=== PATIENT | female | born 1965 | race American Indian/Alaskan Native ===

== ENCOUNTER 2018-11-11 17:53 | Inpatient (IN) | payer MEDICAID ==
[2018-11-11] MEDS ORDERED: Sodium Chloride 0.9% 1,000 ML IV ONE (19:56)
--- NOTE | 2018-11-11 20:07 | C.PDOC ---
History Of Present Illness Patient is a 53 year old female, with a PMHx of stomach cancer, who presents to the ED for evaluation of vomiting after eating today. Patient states that she has had numerous previous episodes. Patient states that she had some procedure done at another hospital but is unsure of what it was. Patient is a poor historian. She denies any fever, chills, CP, SOB, or other complaints. Time Seen by Provider: 11/11/18 19:46 Chief Complaint (Nursing): Abdominal Pain History Per: Patient History/Exam Limitations: no limitations Onset/Duration Of Symptoms: Hrs Current Symptoms Are (Timing): Still Present Associated Symptoms: Vomiting. denies: Fever Recent travel outside of the [place]: No Additional History Per: Patient Past Medical History Reviewed: Historical Data, Nursing Documentation, Vital Signs Vital Signs: Last Vital Signs Temp 97.5 F L 11/11/18 18:08 Pulse 101 H 11/11/18 18:08 Resp 18 11/11/18 18:08 BP 121/83 11/11/18 18:08 Pulse Ox 97 11/11/18 18:08 - Medical History PMH: Hypercholesterolemia, Obstructive Bowel Surgical History: No Surg Hx Family History: States: No Known Family Hx - Social History Hx Alcohol Use: Yes Hx Substance Use: No - Immunization History Hx Tetanus Toxoid Vaccination: No Hx Influenza Vaccination: No Hx Pneumococcal Vaccination: No Review Of Systems Except As Marked, All Systems Reviewed And Found Negative. Constitutional: Negative for: Fever, Chills Cardiovascular: Negative for: Chest Pain Respiratory: Negative for: Shortness of Breath Gastrointestinal: Positive for: Vomiting Physical Exam - Physical Exam Appears: Non-toxic, No Acute Distress Skin: Normal Color, Warm, Dry Head: Atraumatic, Normacephalic Oral Mucosa: Moist Neck: Normal ROM, Supple Chest: Symmetrical, No Deformity Cardiovascular: Rhythm Regular, No Murmur Respiratory: Normal Breath Sounds, No Rales, No Rhonchi, No Wheezing Gastrointestinal/Abdominal: Soft, Tenderness (epigastric) Neurological/Psych: Oriented x3 ED Course And Treatment - Laboratory Results Result Diagrams: 11/11/18 20:57 11/11/18 20:57 O2 Sat by Pulse Oximetry: 97 (on RA) Pulse Ox Interpretation: Normal Medical Decision Making Medical Decision Making: Plan: CAT Chest Labs Urinalysis HCG Urinalysis IV Fluids Zofran 4mg PO Protonix 40mg IVP Patient reports hx of anemia. Refuses rectal exam. upon ed arrival case discusse nawaf hpmd elamir. states pt has h/ o of esophageal stent with numerous dilatation procedure. requests labs and admission for gi eval. Disposition - Disposition Disposition: HOSPITALIZED Disposition Time: 22:00 Condition: STABLE - Clinical Impression Clinical Impression: Vomiting, Abdominal pain - Scribe Statement The provider has reviewed the documentation as recorded by the Marta Luong All medical record entries made by the Rebecaibmariano were at my direction and personally dictated by me. I have reviewed the chart and agree that the record accurately reflects my personal performance of the history, physical exam, medical decision making, and the department course for this patient. I have also personally directed, reviewed, and agree with the discharge instructions and disposition.
[2018-11-11] MEDS ORDERED: Sodium Chloride 0.9% 1,000 ML ONE (20:56)
[2018-11-11 21:07] LABS: BASO # 0.1 K/uL (0.0-0.2); BASO % 0.6 % (0.0-2.0); EOS # 0.1 K/uL (0.0-0.7); EOS % 1.4 % (0.0-4.0); LYMPH # 2.2 K/uL (1.0-4.3); LYMPH % 22.9 % (20.0-40.0); MEAN CELL VOLUME 82.7 fL (81.0-99.0); MEAN CORPUSCULAR HEMOGLOBIN 26.7 pg (27.0-31.0); MEAN CORPUSCULAR HGB CONC 32.3 g/dL (33.0-37.0); MEAN PLATELET VOLUME 7.6 fL (7.2-11.7); MONO # 0.7 K/uL (0.0-0.8); MONO % 7.6 % (0.0-10.0); NEUT # 6.5 K/uL (1.8-7.0); NEUT % 67.5 % (50.0-75.0); RBC 3.37 Mil/uL (3.80-5.20); RED CELL DISTRIBUTION WIDTH 19.1 % (11.5-14.5); WHITE BLOOD COUNT 9.6 K/uL (4.8-10.8)
[2018-11-11 21:20] LABS: ALB/GLOB RATIO 0.9 (1.0-2.1); ALBUMIN 3.7 g/dL (3.5-5.0); ALT/SGPT < 6 U/L (9-52); AST/SGOT 20 U/L (14-36); BLOOD UREA NITROGEN 14 mg/dL (7-17); GFR NON-AFRICAN AMERICAN > 60; LIPASE 28 U/L (23-300)
[2018-11-11] MEDS ORDERED: HYDROmorphone 1 mg/ml ISec IVP PRN (21:34)
[2018-11-11 22:09] LABS: INR 1.2; PROTHROMBIN TIME 12.9 SECONDS (9.7-12.2)
[2018-11-11] MEDS: Sodium Chloride 0.9% 1,000 ML IV SCH (23:00)
[2018-11-12] MEDS: Sodium Chloride 0.9% 1,000 ML IV SCH ×2 (07:37→08:47)
--- NOTE | 2018-11-12 09:24 | CP.PCM.PN ---
Subjective - Date & Time of Evaluation Date of Evaluation: 11/12/18 Time of Evaluation: 10:15 - Subjective Subjective: 53 year old female with PMHx of Stomach CA, HLD, Esophageal Stent w/ numerous dilatations, Anemia, and Diabetes presents for evaluation and treatment of Abdominal pain/vomiting. Patient was to go for an esophageal stent tomorrow. Today, patient still complains of nausea and not being able to tolerate PO intake. She denies any fevers, chills, chest pain, SOB, or any urinary symptoms. Abdominal Pain has improved. PMHx: Stomach CA, HLD, Esophageal Stent w/ numerous dilatations, Anemia, and Diabetes PSHx: Esophageal Stents Allergies: NKDA SocialHx: Admits to ETOH USe Meds: Per OCT. Objective - Vital Signs/Intake and Output Vital Signs (last 24 hours): Temp Pulse Resp BP Pulse Ox 97.7 F 74 20 113/77 97 11/12/18 07:31 11/12/18 07:31 11/12/18 07:31 11/12/18 07:31 11/12/18 07:31 Intake and Output: 11/12/18 11/12/18 06:59 18:59 Intake Total 800 Balance 800 - Medications Medications: Current Medications Hydromorphone HCl (Dilaudid) 1 mg IVP Q4H PRN PRN Reason: Pain, severe (8-10) Sodium Chloride (Sodium Chloride 0.9%) 1,000 mls @ 100 mls/hr IV .Q10H [facility] Last Admin: 11/12/18 08:47 Dose: 100 mls/hr Ondansetron HCl (Zofran Inj) 4 mg IVP Q8 PRN PRN Reason: Nausea/Vomiting Pantoprazole Sodium (Protonix Inj) 40 mg IVP DAILY TWYLA - Labs Labs: 11/11/18 20:57 11/11/18 20:57 PT 12.9 SECONDS (9.7-12.2) H 11/11/18 20:57 INR 1.2 11/11/18 20:57 APTT 21 SECONDS (21-34) 11/11/18 20:57 - Constitutional Appears: Well, Non-toxic, No Acute Distress - Eye Exam Eye Exam: EOMI, Normal appearance. absent: Scleral icterus - ENT Exam ENT Exam: Mucous Membranes Moist - Respiratory Exam Respiratory Exam: Clear to Ausculation Bilateral, NORMAL BREATHING PATTERN. absent: Accessory Muscle Use - Cardiovascular Exam Cardiovascular Exam: RRR, +S1, +S2 - GI/Abdominal Exam GI & Abdominal Exam: Soft, Tenderness (Epigastric), Normal Bowel Sounds - Extremities Exam Extremities Exam: Normal Inspection. absent: Pedal Edema - Neurological Exam Neurological Exam: Alert, Awake, Oriented x3 - Psychiatric Exam Psychiatric exam: Normal Affect, Normal Mood - Skin Skin Exam: Dry, Intact, Normal Color, Warm Assessment and Plan - Assessment and Plan (Free Text) Assessment: 53 year old female with PMHx of Stomach CA, HLD, Esophageal Stent w/ numerous dilatations, Anemia, and Diabetes presents for evaluation and treatment of Abdominal pain/vomiting. Plan: Abdominal Pain, Hx of Stomach CA, Vomiting Consult: Gastroenterology Consult (Dr. Lindsey), F/U Recs Mgmt: NPO NS @ 100mls/s Protonix 40 IVP Daily Zofran PRN Dilauded 1mg IVP Q4H PRN Normocytic Anemia Anemia Workup Shows Low Iron Sat. Stop Vitamin B12. B12 >1000 Mgmt: Ferrlicet 125mg IVPB daily (Start on 11/13/18) HLD Hold Home meds while Patient is NPO (Lipitor 40mg HS) Diabetes Hold Home Meds while patient is NPO (Metformin 1000 BID, Alogliptin 25mg Daily) Proph SCD's Protonix NS @ 1000 NPO Dispo: Will follow up with GI Recs. Patient Seen and Discussed with Dr. Srivastava. Carole Gonsalez, PGY-2
[2018-11-12 10:34] LABS: HCG,QUALITATIVE URINE NEGATIVE (NEGATIVE)
[2018-11-12 10:46] LABS: SQUAMOUS EPITHIAL 1 /hpf (0-5); URINE BACTERIA RARE (<OCC); URINE BILIRUBIN NEGATIVE (NEGATIVE); URINE BLOOD NEGATIVE (NEGATIVE); URINE CLARITY Clear (Clear); URINE COLOR Yellow (YELLOW); URINE GLUCOSE (UA) NORMAL (Normal); URINE LEUKOCYTE ESTERASE 1+ Leu/uL (Negative); URINE PROTEIN NEGATIVE (NEGATIVE); URINE UROBILINOGEN NORMAL mg/dL (0.2-1.0)
[2018-11-12 11:39] LABS: BASO # 0.1 K/uL (0.0-0.2); BASO % 0.9 % (0.0-2.0); EOS # 0.2 K/uL (0.0-0.7); EOS % 2.6 % (0.0-4.0); HEMOGLOBIN 8.6 g/dL (11.0-16.0); LYMPH # 1.9 K/uL (1.0-4.3); LYMPH % 24.1 % (20.0-40.0); MEAN CORPUSCULAR HGB CONC 32.1 g/dL (33.0-37.0); MEAN PLATELET VOLUME 7.5 fL (7.2-11.7); MONO # 0.5 K/uL (0.0-0.8); NEUT # 5.1 K/uL (1.8-7.0); NEUT % 65.4 % (50.0-75.0); RBC 3.2 Mil/uL (3.80-5.20); RED CELL DISTRIBUTION WIDTH 19.3 % (11.5-14.5); WHITE BLOOD COUNT 7.7 K/uL (4.8-10.8)
[2018-11-12 11:47] LABS: IRON 59 ug/dL (37-170)
[2018-11-12 11:51] LABS: ALB/GLOB RATIO 0.9 (1.0-2.1); ALBUMIN 3.2 g/dL (3.5-5.0); ALT/SGPT 12 U/L (9-52); AST/SGOT 17 U/L (14-36); BLOOD UREA NITROGEN 13 mg/dL (7-17); CALCIUM 8.7 mg/dl (8.6-10.4); GFR NON-AFRICAN AMERICAN > 60
[2018-11-12 11:58] LABS: % IRON SATURATION 18 (20-55); TOTAL IRON BINDING CAPACITY 329 ug/dL (250-450)
[2018-11-12 12:44] LABS: FERRITIN 6.8 ng/mL
[2018-11-12 13:14] LABS: FOLATE > 20.0 ng/mL
--- NOTE | 2018-11-12 14:55 | CT ---
Date of service: 11/11/2018 PROCEDURE: CT Chest, Abdomen and Pelvis without intravenous contrast HISTORY: vomiting, h/o of esophageal cancer s/p stent COMPARISON: None available. TECHNIQUE: Radiation dose: Total exam DLP = 304.87 mGy-cm. This CT exam was performed using one or more of the following dose reduction techniques: Automated exposure control, adjustment of the mA and/or kV according to patient size, and/or use of iterative reconstruction technique. FINDINGS: CT CHEST WITHOUT CONTRAST: LUNGS: Clear. No nodule, mass or consolidation. MEDIASTINUM: . Normal caliber aorta and pulmonary arterial trunk. Normal size heart. Right internal jugular vein catheter in superior vena cava. LYMPH NODES: Unremarkable. PLEURA: Unremarkable. No pneumothorax. No pleural fluid. BONES: Unremarkable. OTHER FINDINGS: There is distal esophageal luminal severe narrowing that partially involves the most proximal portion of the esophagogastric stent in place.. This relative narrowing of the esophagus begins approximately 3.5 cm inferior to the tracheal bifurcation./david the overall length of distal esophageal narrowing involving severe luminal narrowing is estimated to be 2.7 cm in cephalo caudal extent-this is mostly proximal to the most proximal end of the esophageal stent. The most proximal portion of the stent is estimated to be 6.8 cm distal to the david. There is soft tissue and/or high density fluid in the lumen of the stent containing into the stomach as well. The gastric wall appears a thickened in the abdomen as well The distal esophageal severe luminal narrowing is 1 mm or less on series 3, image 71 this is just proximal to the esophageal gastric stent. ([place] series 3, image 71) CT ABDOMEN AND PELVIS: LIVER: Unremarkable. No gross lesion or ductal dilatation. GALLBLADDER AND BILE DUCTS: Unremarkable. PANCREAS: Unremarkable. Limited evaluation without IV contrast. SPLEEN: Unremarkable. ADRENALS: Unremarkable. No mass. KIDNEYS AND URETERS: Unremarkable. No hydronephrosis. No solid mass. VASCULATURE: No aortic atherosclerotic calcification or mural plaque p in the descending abdominal aorta.. No aortic aneurysm. Bilateral hemipelvic phleboliths noted. BOWEL: Extensive stool in the rectosigmoid colon and marked rectal stool and rectosigmoid patulous caliber. Here proctitis is a consideration.. No gross mural thickening. Bowel obstruction seen. APPENDIX: Normal appendix. PERITONEUM: Unremarkable. No free fluid. No free air. LYMPH NODES: Unremarkable. No enlarged lymph nodes. BLADDER: Unremarkable. REPRODUCTIVE: Unremarkable. BONES: No acute fracture. OTHER FINDINGS: None. IMPRESSION: Esophagogastric stent in place. Proximal to the stent there is severe distal esophageal luminal narrowing with circumferential 3 cm cephalo caudal segmental mural thickening present. This esophageal mural thickening is above the esophagogastric stent. The severe distal esophageal narrowing is at and just proximal to the esophagogastric stent. This severe is esophageal narrowing pinhole like 1 mm or less in caliber. The distal esophageal mural thickening extends into the most proximal esophagogastric stent. There is also some gastric mural thickening also suggested. The mid esophageal dilatation is consistent with high-grade essentially near complete distal esophageal obstruction just proximal to the stent. The preliminary [place] rad reading did not mention the distal esophageal severe narrowing and proximal obstructing dilatation-as detailed above. Other findings as above. Comments: Study marked for PA review .
[2018-11-12] MEDS ORDERED: Dextrose 50% SYRINGE Inj (50 ml) IV PRN (21:23)
[2018-11-12] MEDS ORDERED: Glucagon Recombinant 1 mg Inj IM PRN (21:23)
[2018-11-13] MEDS: Sodium Chloride 0.9% 1,000 ML IV SCH ×2 (04:40→05:49)
[2018-11-13 07:27] LABS: BASO # 0.1 K/uL (0.0-0.2); BASO % 0.8 % (0.0-2.0); EOS # 0.2 K/uL (0.0-0.7); HEMOGLOBIN 8.7 g/dL (11.0-16.0); LYMPH # 1.9 K/uL (1.0-4.3); LYMPH % 29.2 % (20.0-40.0); MEAN CELL VOLUME 84.7 fL (81.0-99.0); MEAN CORPUSCULAR HEMOGLOBIN 27.3 pg (27.0-31.0); MEAN CORPUSCULAR HGB CONC 32.2 g/dL (33.0-37.0); MEAN PLATELET VOLUME 7.8 fL (7.2-11.7); MONO # 0.6 K/uL (0.0-0.8); MONO % 8.5 % (0.0-10.0); NEUT # 3.9 K/uL (1.8-7.0); NEUT % 58.5 % (50.0-75.0); RBC 3.17 Mil/uL (3.80-5.20); RED CELL DISTRIBUTION WIDTH 18.5 % (11.5-14.5); WHITE BLOOD COUNT 6.6 K/uL (4.8-10.8)
--- NOTE | 2018-11-13 07:51 | CP.PCM.PN ---
Subjective - Date & Time of Evaluation Date of Evaluation: 11/13/18 Time of Evaluation: 07:50 - Subjective Subjective: Medicine Progress Note - Dr Srivastava's service Patient seen and examined at bedside. Per nursing, blood sugars have been inthe 60-70s, changed fluids to D5/NS. Patient is NPO for GI series. Offers no other complaints at this time. Objective - Vital Signs/Intake and Output Vital Signs (last 24 hours): Temp Pulse Resp BP Pulse Ox 97.6 F 69 20 111/71 99 11/13/18 00:00 11/13/18 00:00 11/13/18 00:00 11/13/18 00:00 11/13/18 00:00 Intake and Output: 11/13/18 11/13/18 06:59 18:59 Intake Total 800 Output Total 700 Balance 100 - Medications Medications: Current Medications Dextrose (Dextrose 50% Inj) 0 ml IV STAT PRN; Protocol PRN Reason: Hypoglycemia Protocol Last Admin: 11/12/18 21:58 Dose: 50 ml Dextrose (Glutose 15) 0 gm PO ONCE PRN; Protocol PRN Reason: Hypoglycemia Protocol Ferric Sodium Gluconate Complex (Ferrlecit) 125 mg IVPB DAILY [facility] Stop: 11/21/18 10:01 Glucagon (Glucagen Diagnostic Kit) 0 mg IM STAT PRN; Protocol PRN Reason: Hypoglycemia Protocol Hydromorphone HCl (Dilaudid) 1 mg IVP Q4H PRN PRN Reason: Pain, severe (8-10) Dextrose (Dextrose 5% In Water 1000 Ml) 1,000 mls @ 0 mls/hr IV .Q0M PRN; Protocol PRN Reason: Hypoglycemia Protocol Dextrose/Sodium Chloride (Dextrose 5%/0.9% Ns 1000 Ml) 1,000 mls @ 100 mls/hr IV .Q10H [facility] Ondansetron HCl (Zofran Inj) 4 mg IVP Q8 PRN PRN Reason: Nausea/Vomiting Pantoprazole Sodium (Protonix Inj) 40 mg IVP DAILY [facility] Last Admin: 11/12/18 10:34 Dose: 40 mg - Labs Labs: 11/12/18 11:30 11/12/18 11:30 PT 12.9 SECONDS (9.7-12.2) H 11/11/18 20:57 INR 1.2 11/11/18 20:57 APTT 21 SECONDS (21-34) 11/11/18 20:57 - Constitutional Appears: Non-toxic, No Acute Distress - Head Exam Head Exam: ATRAUMATIC, NORMAL INSPECTION - Eye Exam Eye Exam: EOMI, Normal appearance - Neck Exam Neck Exam: Full ROM - Respiratory Exam Respiratory Exam: NORMAL BREATHING PATTERN - Cardiovascular Exam Cardiovascular Exam: REGULAR RHYTHM, +S1, +S2 - GI/Abdominal Exam GI & Abdominal Exam: Soft. absent: Firm, Guarding, Rigid - Extremities Exam Extremities Exam: Normal Inspection. absent: Calf Tenderness - Neurological Exam Neurological Exam: Alert, Awake, Oriented x3 - Psychiatric Exam Psychiatric exam: Normal Affect, Normal Mood Assessment and Plan - Assessment and Plan (Free Text) Assessment: 53 year old female with PMHx of Stomach CA, HLD, Esophageal Stent w/ numerous dilatations, Anemia, and Diabetes presents for evaluation and treatment of Abdominal pain/vomiting. Plan: Abdominal Pain, Hx of Stomach CA, Vomiting Stable, afebrile Patient underwent GI series, results pending Unable to tolerate diet, admits to vomiting her lunch Will try clear liquids for dinner Zofran PRN Protonix 40 IVP Daily GI on consult, Dr Lindsey, help appreciated Heme onc consulted, Dr Pool, help appreciated Normocytic Anemia (chronic) Anemia Workup Shows Low Iron Sat. Ferrlicet 125mg IVPB daily (Start on 11/13/18) HLD On lipitor 40mg PO at home Diabetes Insulin sliding scale and accuchecks ACHS GI/DVT ppx SCD's Protonix 40mg IVP daily Dispo: Patient may need to be evaluated for PEG tube. Will follow up with GI Recommendations Plan discussed with Dr Atif Mac DO PGY-2
[2018-11-13 07:53] LABS: ALB/GLOB RATIO 0.8 (1.0-2.1); ALBUMIN 3.1 g/dL (3.5-5.0); ALT/SGPT 13 U/L (9-52); AST/SGOT 21 U/L (14-36); BLOOD UREA NITROGEN 13 mg/dL (7-17); CALCIUM 8.6 mg/dl (8.6-10.4); GFR NON-AFRICAN AMERICAN > 60
[2018-11-13] MEDS: Dextrose 5%/0.9% NS 1,000 ML IV SCH ×2 (08:04→18:08)
[2018-11-13] MEDS: Ferric Sodium Gluconat Complex 62.5 mg/5 ml Vial IVPB SCH (09:31)
--- NOTE | 2018-11-13 09:34 | PN ---
DATE: 11/13/2018 LOCATION: 357, bed A. SUBJECTIVE: This is an 53-year-old female, seen initially for GI consultation on 11/13/2018, reexamined again today with intermittent period of abdominal pain, generalized weakness and malaise with less oral intake and postprandial abdominal distention with reported episodes of hypoglycemia this morning. The entire chart is reviewed including the most recent lab results and today's hemoglobin is stable at 8.7, hematocrit 26.8 with CO2 content of 20. Albumin 3.1. Most recently done abdominal and pelvic CAT scan, report is reviewed, indicative of possible gastric CA which the patient has a wide history. PHYSICAL EXAMINATION: GENERAL: A 53-year-old female. VITAL SIGNS: Afebrile with pulse of 66, respiratory rate 20 to 22, blood pressure of 120/72. HEENT: Showed pale dry oral mucous membrane. Nonicteric sclerae. LUNGS: Few scattered crepitation. Decreased air entry at bases. HEART: Positive S1 and S2. ABDOMEN: Soft with mild generalized tenderness. No mass or organomegaly. No rebound tenderness or guarding. EXTREMITIES: Without significant clubbing, cyanosis or edema. IMPRESSION: 1. Reported known history of gastric carcinoma. 2. Anemia, secondary to above. 3. Episodes of hypoglycemia due to poor oral intake. 4. Known history of hyperlipidemia. 5. Abnormal CAT scan of the abdomen and pelvis. 6. To rule out possible intermittent partial obstruction. SUGGESTIONS: 1. Agree with your plan. 2. Oncology/Hematology consult. 3. Blood transfusion as needed to keep hemoglobin around 10 g percent. 4. Antireflux measures. 5. Upper GI with small bowel follow-through and surgical reevaluation should be kept in mind. 6. As the patient had recurrent episode of nausea and vomiting and after upper GI series was performed, endoscopic evaluation of the upper GI tract to be considered. 7. Reglan IV. 8. Proton pump inhibitors. 9. Central hyperalimentation versus peripheral hyperalimentation. 10. Further recommendation to follow. Valeria Cardona MD
[2018-11-13] MEDS ORDERED: Barium Sulfate for Susp 96% w/w 176g Bottle PR ONE (10:34)
[2018-11-13] MEDS ORDERED: Barium Sulfate for Susp 98% w/w 340g Bottle ONE (10:34)
--- NOTE | 2018-11-13 20:16 | HP ---
HISTORY OF PRESENT ILLNESS: A 53-year-old female with history of GI cancer. The patient has renal failure and multiple stents with recurrent obstruction and multiple dilations. The patient has vomiting, dysphagia. PHYSICAL EXAMINATION: GENERAL: The patient is awake, alert and oriented. VITAL SIGNS: Temperature 98, pulse 90. HEENT: Within normal limits. NECK: Supple. CHEST: Symmetrical. HEART: Regular. ABDOMEN: Soft. EXTREMITIES: No edema. IMPRESSION AND PLAN: The patient suffers from stenosis and obstruction. We will get gastrointestinal consult and nothing by mouth. Sarai Srivastava MD
--- NOTE | 2018-11-13 22:11 | CP.PCM.CON ---
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 The patient notes to dysphagia involving solids and liquids which began on Sunday. She was supposed to have a repeat esophageal intervention tomorrow but notes she was unable to wait. She denies fevers and chills. A CT C/A/P revealed severe esophageal luminal narrowing. Past medical history. Anemia, esophageal squamous carcinoma Past surgical history: Feeding tube Family history: Denies hematologic and oncologic problems Social history: Former tobacco and alcohol use. Allergies: NKA Review of systems: All remaining review of systems including HEENT, cardiovascular, respiratory, gastrointestinal, genitourinary, musculoskeletal, dermatologic, neurologic, and psychiatric are negative unless mentioned in the HPI. Past Patient History - Past Medical History & Family History Past Medical History?: Yes - Past Social History Smoking Status: Never Smoked - CARDIAC Hx Cardiac Disorders: Yes Hx Hypercholesterolemia: Yes - PULMONARY Hx Respiratory Disorders: No - NEUROLOGICAL Hx Neurological Disorder: No - HEENT Hx HEENT Problems: No - RENAL Hx Chronic Kidney Disease: No - ENDOCRINE/METABOLIC Hx Endocrine Disorders: Yes Hx Diabetes Mellitus Type 2: Yes - HEMATOLOGICAL/ONCOLOGICAL Hx Blood Disorders: Yes Hx Cancer: Yes (COLON) - INTEGUMENTARY Hx Dermatological Problems: No - MUSCULOSKELETAL/RHEUMATOLOGICAL Hx Musculoskeletal Disorders: No Hx Falls: No - GASTROINTESTINAL Hx Gastrointestinal Disorders: Yes Other/Comment: COLON CANCER - GENITOURINARY/GYNECOLOGICAL Hx Genitourinary Disorders: No - PSYCHIATRIC Hx Psychophysiologic Disorder: No Hx Substance Use: No - SURGICAL HISTORY Hx Surgeries: Yes Other/Comment: GT INSERTION AND REMOVAL - ANESTHESIA Hx Anesthesia: Yes Hx Anesthesia Reactions: No Hx Malignant Hyperthermia: No Meds Allergies/Adverse Reactions: Allergies Allergy/AdvReac Type Severity Reaction Status Date / Time No Known Allergies Allergy Verified 11/11/18 18:12 - Medications Medications: Current Medications Dextrose (Dextrose 50% Inj) 0 ml IV STAT PRN; Protocol PRN Reason: Hypoglycemia Protocol Last Admin: 11/12/18 21:58 Dose: 50 ml Dextrose (Glutose 15) 0 gm PO ONCE PRN; Protocol PRN Reason: Hypoglycemia Protocol Ferric Sodium Gluconate Complex (Ferrlecit) 125 mg IVPB DAILY TWYLA Stop: 11/21/18 10:01 Last Admin: 11/13/18 09:31 Dose: 125 mg Glucagon (Glucagen Diagnostic Kit) 0 mg IM STAT PRN; Protocol PRN Reason: Hypoglycemia Protocol Hydromorphone HCl (Dilaudid) 1 mg IVP Q4H PRN PRN Reason: Pain, severe (8-10) Dextrose (Dextrose 5% In Water 1000 Ml) 1,000 mls @ 0 mls/hr IV .Q0M PRN; Protocol PRN Reason: Hypoglycemia Protocol Dextrose/Sodium Chloride (Dextrose 5%/0.9% Ns 1000 Ml) 1,000 mls @ 100 mls/hr IV .Q10H [facility] Last Admin: 11/13/18 18:08 Dose: 100 mls/hr Metoclopramide HCl (Reglan) 5 mg IVP Q6 [facility] Last Admin: 11/13/18 18:05 Dose: 5 mg Ondansetron HCl (Zofran Inj) 4 mg IVP Q8 PRN PRN Reason: Nausea/Vomiting Pantoprazole Sodium (Protonix Inj) 40 mg IVP DAILY [facility] Last Admin: 11/13/18 09:30 Dose: 40 mg Physical Exam - Head Exam Head Exam: ATRAUMATIC - Eye Exam Eye Exam: Normal appearance - ENT Exam ENT Exam: Mucous Membranes Dry - Respiratory Exam Respiratory Exam: NORMAL BREATHING PATTERN - Cardiovascular Exam Cardiovascular Exam: +S1, +S2 - GI/Abdominal Exam GI & Abdominal Exam: Normal Bowel Sounds - Neurological Exam Neurological exam: Oriented x3 - Psychiatric Exam Psychiatric exam: Normal Affect, Normal Mood - Skin Skin Exam: Warm Results - Vital Signs Recent Vital Signs: Last Vital Signs Temp 98.7 F 11/13/18 15:13 Pulse 63 11/13/18 15:13 Resp 20 11/13/18 15:13 BP 118/67 11/13/18 15:13 Pulse Ox 97 11/13/18 15:13 - Labs Result Diagrams: 11/13/18 07:19 11/13/18 07:19 Labs: Laboratory Results - last 24 hr 11/12/18 11/13/18 11/13/18 21:21 02:06 07:19 WBC 6.6 RBC 3.17 L Hgb 8.7 L Hct 26.8 L MCV 84.7 MCH 27.3 MCHC 32.2 L RDW 18.5 H Plt Count 380 MPV 7.8 Neut % (Auto) 58.5 Lymph % (Auto) 29.2 [place] % (Auto) 8.5 Eos % (Auto) 3.0 Baso % (Auto) 0.8 Neut # (Auto) 3.9 Lymph # (Auto) 1.9 [place] # (Auto) 0.6 Eos # (Auto) 0.2 Baso # (Auto) 0.1 Sodium Potassium Chloride Carbon Dioxide Anion Gap BUN Creatinine Est GFR ( Amer) Est GFR (Non-Af Amer) POC Glucose (mg/dL) 68 94 Random Glucose Calcium Total Bilirubin AST ALT Alkaline Phosphatase Total Protein Albumin Globulin Albumin/Globulin Ratio Carcinoembryonic Ag CA 19-9 Antigen CA 125 Antigen 11/13/18 11/13/18 11/13/18 07:19 07:26 11:09 WBC RBC Hgb Hct MCV MCH MCHC RDW Plt Count MPV Neut % (Auto) Lymph % (Auto) [place] % (Auto) Eos % (Auto) Baso % (Auto) Neut # (Auto) Lymph # (Auto) [place] # (Auto) Eos # (Auto) Baso # (Auto) Sodium 139 Potassium 3.8 Chloride 109 H Carbon Dioxide 20 L Anion Gap 13 BUN 13 Creatinine 0.6 L Est GFR ( Amer) > 60 Est GFR (Non-Af Amer) > 60 POC Glucose (mg/dL) 70 86 Random Glucose 65 Calcium 8.6 Total Bilirubin 0.4 AST 21 ALT 13 Alkaline Phosphatase 83 Total Protein 6.7 Albumin 3.1 L Globulin 3.7 Albumin/Globulin Ratio 0.8 L Carcinoembryonic Ag 1.5 CA 19-9 Antigen 4.2 CA 125 Antigen < 5.5 11/13/18 11/13/18 16:12 20:59 WBC RBC Hgb Hct MCV MCH MCHC RDW Plt Count MPV Neut % (Auto) Lymph % (Auto) [place] % (Auto) Eos % (Auto) Baso % (Auto) Neut # (Auto) Lymph # (Auto) [place] # (Auto) Eos # (Auto) Baso # (Auto) Sodium Potassium Chloride Carbon Dioxide Anion Gap BUN Creatinine Est GFR ( Amer) Est GFR (Non-Af Amer) POC Glucose (mg/dL) 103 133 H Random Glucose Calcium Total Bilirubin AST ALT Alkaline Phosphatase Total Protein Albumin Globulin Albumin/Globulin Ratio Carcinoembryonic Ag CA 19-9 Antigen CA 125 Antigen Assessment & Plan (1) Esophageal cancer Assessment and Plan: s/p chemoradiation in 2017 prior esophageal biopsies negative for recurrence and showed strictures GI evaluation for endoscopy ?stricture ? recurrent malignancy may need feeding tube depending on GI intervention Status: Acute (2) Anemia Assessment and Plan: iron deficiency anemia on IV iron Thank you for this interesting consult. Status: Acute
[2018-11-14] MEDS: Dextrose 5%/0.9% NS 1,000 ML IV SCH ×2 (04:12→14:17)
[2018-11-14 06:43] LABS: BASO % 0.6 % (0.0-2.0); EOS # 0.2 K/uL (0.0-0.7); EOS % 2.6 % (0.0-4.0); HEMOGLOBIN 8.4 g/dL (11.0-16.0); LYMPH # 1.4 K/uL (1.0-4.3); LYMPH % 22.8 % (20.0-40.0); MEAN CELL VOLUME 83.7 fL (81.0-99.0); MEAN CORPUSCULAR HEMOGLOBIN 26.8 pg (27.0-31.0); MEAN PLATELET VOLUME 7.5 fL (7.2-11.7); MONO # 0.6 K/uL (0.0-0.8); RBC 3.12 Mil/uL (3.80-5.20); RED CELL DISTRIBUTION WIDTH 18.5 % (11.5-14.5); WHITE BLOOD COUNT 6.2 K/uL (4.8-10.8)
[2018-11-14 06:56] LABS: ALB/GLOB RATIO 0.8 (1.0-2.1); ALBUMIN 2.9 g/dL (3.5-5.0); ALT/SGPT 9 U/L (9-52); AST/SGOT 22 U/L (14-36); BLOOD UREA NITROGEN 6 mg/dL (7-17); CALCIUM 8.5 mg/dl (8.6-10.4); GFR NON-AFRICAN AMERICAN > 60
[2018-11-14] MEDS: Ferric Sodium Gluconat Complex 62.5 mg/5 ml Vial IVPB SCH (09:52)
--- NOTE | 2018-11-14 16:09 | CP.PCM.PN ---
Subjective - Date & Time of Evaluation Date of Evaluation: 11/14/18 Time of Evaluation: 11:00 - Subjective Subjective: Patient seen and examined at bedside. She is still intolerant to PO intake w/ Nausea and vomiting. She still complains of epigastric pain. Patient denies any fevers, chills, Chest Pain, SOB, changes in bowel habits, or urinary symptoms. Objective - Vital Signs/Intake and Output Vital Signs (last 24 hours): Temp Pulse Resp BP Pulse Ox 97.9 F 67 20 120/79 97 11/14/18 07:42 11/14/18 07:42 11/14/18 07:42 11/14/18 07:42 11/14/18 07:42 Intake and Output: 11/14/18 11/14/18 06:59 18:59 Intake Total 805 1040 Balance 805 1040 - Medications Medications: Current Medications Dextrose (Dextrose 50% Inj) 0 ml IV STAT PRN; Protocol PRN Reason: Hypoglycemia Protocol Last Admin: 11/12/18 21:58 Dose: 50 ml Dextrose (Glutose 15) 0 gm PO ONCE PRN; Protocol PRN Reason: Hypoglycemia Protocol Ferric Sodium Gluconate Complex (Ferrlecit) 125 mg IVPB DAILY [facility] Stop: 11/21/18 10:01 Last Admin: 11/14/18 09:52 Dose: 62.5 mg Glucagon (Glucagen Diagnostic Kit) 0 mg IM STAT PRN; Protocol PRN Reason: Hypoglycemia Protocol Hydromorphone HCl (Dilaudid) 1 mg IVP Q4H PRN PRN Reason: Pain, severe (8-10) Dextrose (Dextrose 5% In Water 1000 Ml) 1,000 mls @ 0 mls/hr IV .Q0M PRN; Protocol PRN Reason: Hypoglycemia Protocol Dextrose/Sodium Chloride (Dextrose 5%/0.9% Ns 1000 Ml) 1,000 mls @ 100 mls/hr IV .Q10H [facility] Last Admin: 11/14/18 14:17 Dose: Not Given Metoclopramide HCl (Reglan) 5 mg IVP Q6 [facility] Last Admin: 11/14/18 14:20 Dose: 5 mg Ondansetron HCl (Zofran Inj) 4 mg IVP Q8 PRN PRN Reason: Nausea/Vomiting Pantoprazole Sodium (Protonix Inj) 40 mg IVP DAILY [facility] Last Admin: 11/14/18 09:53 Dose: 40 mg - Labs Labs: 11/14/18 06:30 11/14/18 06:30 PT 12.9 SECONDS (9.7-12.2) H 11/11/18 20:57 INR 1.2 11/11/18 20:57 APTT 21 SECONDS (21-34) 11/11/18 20:57 - Additional Findings Additional findings: - Constitutional Appears: Well, Non-toxic, No Acute Distress - Eye Exam Eye Exam: EOMI, Normal appearance. absent: Scleral icterus - ENT Exam ENT Exam: Mucous Membranes Moist - Respiratory Exam Respiratory Exam: Clear to Ausculation Bilateral, NORMAL BREATHING PATTERN. absent: Accessory Muscle Use - Cardiovascular Exam Cardiovascular Exam: RRR, +S1, +S2 - GI/Abdominal Exam GI & Abdominal Exam: Soft, Tenderness (Epigastric), Normal Bowel Sounds - Extremities Exam Extremities Exam: Normal Inspection. absent: Pedal Edema - Neurological Exam Neurological Exam: Alert, Awake, Oriented x3 - Psychiatric Exam Psychiatric exam: Normal Affect, Normal Mood - Skin Skin Exam: Dry, Intact, Normal Color, Warm Assessment and Plan - Assessment and Plan (Free Text) Assessment: 53 year old female with PMHx of Stomach CA, HLD, Esophageal Stent w/ numerous dilatations, Anemia, and Diabetes presents for evaluation and treatment of Abdom inal pain/vomiting. Plan: Abdominal Pain, Hx of Stomach CA, Vomiting Consult: Gastroenterology Consult (Dr. Lindsey) Plan for Endoscopy Mgmt: NPO NS @ 100mls/s Protonix 40 IVP Daily Zofran PRN Dilauded 1mg IVP Q4H PRN Metoclopramide 5mg IVPQ Q6H Normocytic Anemia Anemia Workup Shows Low Iron Sat. Stop Vitamin B12. B12 >1000 Mgmt: Ferrlicet 125mg IVPB daily (Start on 11/13/18) HLD Hold Home meds while Patient is NPO (Lipitor 40mg HS) Diabetes Hold Home Meds while patient is NPO (Metformin 1000 BID, Alogliptin 25mg Daily) Proph SCD's Protonix D50/NS @ 100mls/hr NPO Dispo: Will follow up with GI Recs. Patient Seen and Discussed with Dr. Srivastava. Carole Gonsalez, PGY-2
--- NOTE | 2018-11-15 00:51 | CP.PCM.PN ---
Subjective - Date & Time of Evaluation Date of Evaluation: 11/14/18 Time of Evaluation: 15:00 - Subjective Subjective: Unable to tolerate PO Objective - Vital Signs/Intake and Output Vital Signs (last 24 hours): Temp Pulse Resp BP Pulse Ox 98.4 F 63 20 145/84 100 11/14/18 16:28 11/14/18 16:28 11/14/18 16:28 11/14/18 16:28 11/14/18 16:28 Intake and Output: 11/14/18 11/15/18 18:59 06:59 Intake Total 1040 1000 Balance 1040 1000 - Medications Medications: Current Medications Dextrose (Dextrose 50% Inj) 0 ml IV STAT PRN; Protocol PRN Reason: Hypoglycemia Protocol Last Admin: 11/12/18 21:58 Dose: 50 ml Dextrose (Glutose 15) 0 gm PO ONCE PRN; Protocol PRN Reason: Hypoglycemia Protocol Ferric Sodium Gluconate Complex (Ferrlecit) 125 mg IVPB DAILY [facility] Stop: 11/21/18 10:01 Last Admin: 11/14/18 09:52 Dose: 62.5 mg Glucagon (Glucagen Diagnostic Kit) 0 mg IM STAT PRN; Protocol PRN Reason: Hypoglycemia Protocol Hydromorphone HCl (Dilaudid) 1 mg IVP Q4H PRN PRN Reason: Pain, severe (8-10) Dextrose (Dextrose 5% In Water 1000 Ml) 1,000 mls @ 0 mls/hr IV .Q0M PRN; P rotocol PRN Reason: Hypoglycemia Protocol Dextrose/Sodium Chloride (Dextrose 5%/0.9% Ns 1000 Ml) 1,000 mls @ 100 mls/hr IV .Q10H [facility] Last Admin: 11/14/18 14:17 Dose: Not Given Metoclopramide HCl (Reglan) 5 mg IVP Q6 [facility] Last Admin: 11/14/18 23:38 Dose: 5 mg Ondansetron HCl (Zofran Inj) 4 mg IVP Q8 PRN PRN Reason: Nausea/Vomiting Pantoprazole Sodium (Protonix Inj) 40 mg IVP DAILY [facility] Last Admin: 11/14/18 09:53 Dose: 40 mg - Labs Labs: 11/14/18 06:30 11/14/18 06:30 PT 12.9 SECONDS (9.7-12.2) H 11/11/18 20:57 INR 1.2 11/11/18 20:57 APTT 21 SECONDS (21-34) 11/11/18 20:57 - Head Exam Head Exam: ATRAUMATIC - Eye Exam Eye Exam: Normal appearance - ENT Exam ENT Exam: Mucous Membranes Dry - Respiratory Exam Respiratory Exam: NORMAL BREATHING PATTERN - Cardiovascular Exam Cardiovascular Exam: +S1, +S2 - GI/Abdominal Exam GI & Abdominal Exam: Normal Bowel Sounds - Extremities Exam Extremities Exam: Normal Inspection Assessment and Plan (1) Esophageal cancer Assessment & Plan: s/p chemoradiation in 2017 prior esophageal biopsies negative for recurrence and showed strictures GI evaluation for endoscopy ?stricture ? recurrent malignancy may need feeding tube depending on GI intervention Status: Acute (2) Anemia Assessment & Plan: iron deficiency anemia on IV iron Status: Acute
[2018-11-15 06:51] LABS: BASO % 0.5 % (0.0-2.0); EOS # 0.2 K/uL (0.0-0.7); EOS % 2.8 % (0.0-4.0); HEMOGLOBIN 8.8 g/dL (11.0-16.0); LYMPH # 1.5 K/uL (1.0-4.3); LYMPH % 24.1 % (20.0-40.0); MEAN CELL VOLUME 83.8 fL (81.0-99.0); MEAN CORPUSCULAR HEMOGLOBIN 26.4 pg (27.0-31.0); MEAN CORPUSCULAR HGB CONC 31.5 g/dL (33.0-37.0); MEAN PLATELET VOLUME 7.7 fL (7.2-11.7); MONO # 0.6 K/uL (0.0-0.8); MONO % 8.8 % (0.0-10.0); NEUT # 4.1 K/uL (1.8-7.0); NEUT % 63.8 % (50.0-75.0); RBC 3.34 Mil/uL (3.80-5.20); RED CELL DISTRIBUTION WIDTH 18.5 % (11.5-14.5); WHITE BLOOD COUNT 6.4 K/uL (4.8-10.8)
[2018-11-15 07:56] LABS: ALB/GLOB RATIO 0.8 (1.0-2.1); ALT/SGPT < 6 U/L (9-52); AST/SGOT 26 U/L (14-36); BLOOD UREA NITROGEN 4 mg/dL (7-17); CALCIUM 8.4 mg/dl (8.6-10.4); GFR NON-AFRICAN AMERICAN > 60
[2018-11-15] MEDS: Dextrose 5%/0.9% NS 1,000 ML IV SCH ×2 (08:32→11:00)
[2018-11-15] MEDS: Ferric Sodium Gluconat Complex 62.5 mg/5 ml Vial IVPB SCH (10:56)
[2018-11-15] MEDS ORDERED: Midazolam 2 MG/2 ML VIAL ONE (13:21)
[2018-11-15] MEDS ORDERED: Propofol 10 mg/ml Inj (20 ML) ONE (13:22)
[2018-11-15] MEDS ORDERED: Succinylcholine Chloride 20 mg/ml Syr (5 ml) IV ONE (13:37)
--- NOTE | 2018-11-15 14:15 | CP.PCM.PN ---
Subjective - Date & Time of Evaluation Date of Evaluation: 11/15/18 Time of Evaluation: 10:00 - Subjective Subjective: Patient seen and examined at bedside. She is still intolerant to PO intake w/ Nausea and vomiting. She still complains of epigastric pain, although improved from yesterday. Patient denies any fevers, chills, Chest Pain, SOB, changes in bowel habits, or urinary symptoms. Objective - Vital Signs/Intake and Output Vital Signs (last 24 hours): Temp Pulse Resp BP Pulse Ox 97.1 F L 57 L 18 119/79 100 11/15/18 13:40 11/15/18 13:40 11/15/18 13:40 11/15/18 13:40 11/15/18 13:40 Intake and Output: 11/15/18 11/15/18 06:59 18:59 Intake Total 1000 200 Balance 1000 200 - Medications Medications: Current Medications Dextrose (Dextrose 50% Inj) 0 ml IV STAT PRN; Protocol PRN Reason: Hypoglycemia Protocol Last Admin: 11/12/18 21:58 Dose: 50 ml Dextrose (Glutose 15) 0 gm PO ONCE PRN; Protocol PRN Reason: Hypoglycemia Protocol Ferric Sodium Gluconate Complex (Ferrlecit) 125 mg IVPB DAILY [facility] Stop: 11/21/18 10:01 Last Admin: 11/15/18 10:56 Dose: 125 mg Glucagon (Glucagen Diagnostic Kit) 0 mg IM STAT PRN; Protocol PRN Reason: Hypoglycemia Protocol Hydromorphone HCl (Dilaudid) 1 mg IVP Q4H PRN PRN Reason: Pain, severe (8-10) Dextrose (Dextrose 5% In Water 1000 Ml) 1,000 mls @ 0 mls/hr IV .Q0M PRN; Protocol PRN Reason: Hypoglycemia Protocol Dextrose/Sodium Chloride (Dextrose 5%/0.9% Ns 1000 Ml) 1,000 mls @ 100 mls/hr IV .Q10H [facility] Last Admin: 11/15/18 11:00 Dose: Not Given Metoclopramide HCl (Reglan) 5 mg IVP Q6 [facility] Last Admin: 11/15/18 11:35 Dose: Not Given Ondansetron HCl (Zofran Inj) 4 mg IVP Q8 PRN PRN Reason: Nausea/Vomiting Pantoprazole Sodium (Protonix Inj) 40 mg IVP DAILY [facility] Last Admin: 11/15/18 10:55 Dose: 40 mg - Labs Labs: 11/15/18 06:42 11/15/18 06:42 PT 12.9 SECONDS (9.7-12.2) H 11/11/18 20:57 INR 1.2 11/11/18 20:57 APTT 21 SECONDS (21-34) 11/11/18 20:57 - Additional Findings Additional findings: - Constitutional Appears: Well, Non-toxic, No Acute Distress - Eye Exam Eye Exam: EOMI, Normal appearance. absent: Scleral icterus - ENT Exam ENT Exam: Mucous Membranes Moist - Respiratory Exam Respiratory Exam: Clear to Ausculation Bilateral, NORMAL BREATHING PATTERN. absent: Accessory Muscle Use - Cardiovascular Exam Cardiovascular Exam: RRR, +S1, +S2 - GI/Abdominal Exam GI & Abdominal Exam: Soft, Tenderness (Epigastric), Normal Bowel Sounds - Extremities Exam Extremities Exam: Normal Inspection. absent: Pedal Edema - Neurological Exam Neurological Exam: Alert, Awake, Oriented x3 - Psychiatric Exam Psychiatric exam: Normal Affect, Normal Mood - Skin Skin Exam: Dry, Intact, Normal Color, Warm Assessment and Plan - Assessment and Plan (Free Text) Assessment: 53 year old female with PMHx of Stomach CA, HLD, Esophageal Stent w/ numerous dilatations, Anemia, and Diabetes presents for evaluation and treatment of Abdominal pain/vomiting. Plan: Abdominal Pain, Hx of Stomach CA, Vomiting Consult: Gastroenterology Consult (Dr. Lindsey) Suggested Thoracic Surgery Consult. EGD (11/15/18): LA Grade B esophagitis, One malignant appreaing, intrinsic stenosis was found. Mgmt: NPO D5 NS @ 100mls/s Protonix 40 IVP Daily Zofran PRN Dilauded 1mg IVP Q4H PRN Metoclopramide 5mg IVPQ Q6H Normocytic Anemia Anemia Workup Shows Low Iron Sat. Stop Vitamin B12. B12 >1000 Mgmt: Ferrlicet 125mg IVPB daily (Start on 11/13/18) HLD Hold Home meds while Patient is NPO (Lipitor 40mg HS) Diabetes Hold Home Meds while patient is NPO (Metformin 1000 BID, Alogliptin 25mg Daily) Proph SCD's Protonix D50/NS @ 100mls/hr NPO Dispo: Will follow up with GI Recs. Patient Seen and Discussed with Dr. Srivastava. Carole Gonsalez, PGY-2
[2018-11-15 14:23] VITALS: RESP 20
--- NOTE | 2018-11-15 14:44 | RAD ---
Date of service: 11/13/2018 HISTORY: Dysphagia. Evaluate for mass COMPARISON: Comparison is made with the previous CT of the chest abdomen and pelvis dated 11/11/2018 TECHNIQUE: Double Contrast esophagram was performed. 3 views obtained. FINDINGS: Patient tolerated procedure well. ESOPHAGUS: There is a stent seen at the EG junction extending to the stomach. There is short segment of severe stricture noted at the distal esophagus just above proximal portion of the stent. The possibility of mass lesion at the distal esophagus should be considered. No evidence of stricture or mass in the proximal and midportion of the esophagus. HIATAL HERNIA: No evidence of hiatus hernia. GASTROESOPHAGEAL REFLUX: Cannot be evaluated in this study. OTHER FINDINGS: None. IMPRESSION: Short segment of severe stenosis at the distal esophagus just above the stent highly suspicious for possible mass or neoplasm in the distal esophagus.
--- NOTE | 2018-11-15 16:19 | CP.PCM.CON ---
History of Present Illness - History of Present Illness History of Present Illness: Consult Note for Dr. 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 She normally blends her food, and she could no longer swallow her food or liquid. She states she typically has slight abdominal pain when she experiences dysphagia, however denies fevers, chills, headache, dizziness, chest pain, shortness of breath, nausea, vomiting, dysuria, leg pain or swelling. CT surgery consulted after EGD showed esophageal obstruction of distal third of esophagus. PMH: anemia, esophageal squamous cell carcinoma PSH: peg tube, C sections x5 Social hx: used to smoke cigarettes when she drank a 6 pack, stopped smoking and drinking alcohol in 2016. no history of drug use. Allergies: NKDA Family hx: Aunt - cancer, mother and brother - DM. GI Dr. Rashawn Olivas at [facility] Surgeon: Dr. Cody at [facility] Onc: Dr. Nikolai Pool Review of Systems - Constitutional Constitutional: absent: Chills, Fever - EENT Eyes: absent: Change in Vision Nose/Mouth/Throat: Dysphagia. absent: Sore Throat - Cardiovascular Cardiovascular: absent: Chest Pain, Dyspnea - Respiratory Respiratory: absent: Cough, Dyspnea - Gastrointestinal Gastrointestinal: Abdominal Pain. absent: Diarrhea, Nausea, Vomiting - Genitourinary Genitourinary: absent: Dysuria - Musculoskeletal Musculoskeletal: absent: Back Pain Past Patient History - Past Medical History & Family History Past Medical History?: Yes - Past Social History Smoking Status: Never Smoked - CARDIAC Hx Cardiac Disorders: Yes Hx Hypercholesterolemia: Yes - PULMONARY Hx Respiratory Disorders: No - NEUROLOGICAL Hx Neurological Disorder: No - HEENT Hx HEENT Problems: No - RENAL Hx Chronic Kidney Disease: No - ENDOCRINE/METABOLIC Hx Endocrine Disorders: Yes Hx Diabetes Mellitus Type 2: Yes - HEMATOLOGICAL/ONCOLOGICAL Hx Blood Disorders: Yes Hx Cancer: Yes (COLON) - INTEGUMENTARY Hx Dermatological Problems: No - MUSCULOSKELETAL/RHEUMATOLOGICAL Hx Musculoskeletal Disorders: No Hx Falls: No - GASTROINTESTINAL Hx Gastrointestinal Disorders: Yes Other/Comment: COLON CANCER - GENITOURINARY/GYNECOLOGICAL Hx Genitourinary Disorders: No - PSYCHIATRIC Hx Psychophysiologic Disorder: No Hx Substance Use: No - SURGICAL HISTORY Hx Surgeries: Yes Other/Comment: GT INSERTION AND REMOVAL - ANESTHESIA Hx Anesthesia: Yes Hx Anesthesia Reactions: No Hx Malignant Hyperthermia: No Meds Allergies/Adverse Reactions: Allergies Allergy/AdvReac Type Severity Reaction Status Date / Time No Known Allergies Allergy Verified 11/11/18 18:12 - Medications Medications: Current Medications Dextrose (Dextrose 50% Inj) 0 ml IV STAT PRN; Protocol PRN Reason: Hypoglycemia Protocol Last Admin: 11/12/18 21:58 Dose: 50 ml Dextrose (Glutose 15) 0 gm PO ONCE PRN; Protocol PRN Reason: Hypoglycemia Protocol Ferric Sodium Gluconate Complex (Ferrlecit) 125 mg IVPB DAILY [facility] Stop: 11/21/18 10:01 Last Admin: 11/15/18 10:56 Dose: 125 mg Glucagon (Glucagen Diagnostic Kit) 0 mg IM STAT PRN; Protocol PRN Reason: Hypoglycemia Protocol Hydromorphone HCl (Dilaudid) 1 mg IVP Q4H PRN PRN Reason: Pain, severe (8-10) Dextrose (Dextrose 5% In Water 1000 Ml) 1,000 mls @ 0 mls/hr IV .Q0M PRN; Protocol PRN Reason: Hypoglycemia Protocol Dextrose/Sodium Chloride (Dextrose 5%/0.9% Ns 1000 Ml) 1,000 mls @ 100 mls/hr IV .Q10H [facility] Last Admin: 11/15/18 11:00 Dose: Not Given Metoclopramide HCl (Reglan) 5 mg IVP Q6 [facility] Last Admin: 11/15/18 11:35 Dose: Not Given Ondansetron HCl (Zofran Inj) 4 mg IVP Q8 PRN PRN Reason: Nausea/Vomiting Pantoprazole Sodium (Protonix Inj) 40 mg IVP DAILY [facility] Last Admin: 11/15/18 10:55 Dose: 40 mg Physical Exam - Constitutional Appears: Well, No Acute Distress - Head Exam Head Exam: ATRAUMATIC, NORMOCEPHALIC - Eye Exam Eye Exam: EOMI, PERRL - ENT Exam ENT Exam: Mucous Membranes Moist - Neck Exam Neck exam: Positive for: Full Rom - Respiratory Exam Respiratory Exam: NORMAL BREATHING PATTERN - Cardiovascular Exam Cardiovascular Exam: REGULAR RHYTHM - GI/Abdominal Exam GI & Abdominal Exam: Normal Bowel Sounds, Soft - Extremities Exam Extremities exam: Positive for: pedal pulses present. Negative for: calf tenderness, pedal edema - Neurological Exam Neurological exam: Alert, Oriented x3 - Psychiatric Exam Psychiatric exam: Normal Affect, Normal Mood - Skin Skin Exam: Dry, Intact, Warm Results - Vital Signs Recent Vital Signs: Last Vital Signs Temp 97.4 F L 11/15/18 16:00 Pulse 52 L 11/15/18 16:00 Resp 20 11/15/18 16:00 BP 125/76 11/15/18 16:00 Pulse Ox 100 11/15/18 16:00 - Labs Result Diagrams: 11/15/18 06:42 11/15/18 06:42 Labs: Laboratory Results - last 24 hr 11/14/18 11/14/18 11/15/18 16:26 21:10 06:42 WBC 6.4 RBC 3.34 L Hgb 8.8 L Hct 28.0 L MCV 83.8 MCH 26.4 L MCHC 31.5 L RDW 18.5 H Plt Count 352 MPV 7.7 Neut % (Auto) 63.8 Lymph % (Auto) 24.1 Banner % (Auto) 8.8 Eos % (Auto) 2.8 Baso % (Auto) 0.5 Neut # (Auto) 4.1 Lymph # (Auto) 1.5 Banner # (Auto) 0.6 Eos # (Auto) 0.2 Baso # (Auto) 0.0 Sodium Potassium Chloride Carbon Dioxide Anion Gap BUN Creatinine Est GFR ( Amer) Est GFR (Non-Af Amer) POC Glucose (mg/dL) 92 125 H Random Glucose Calcium Total Bilirubin AST ALT Alkaline Phosphatase Total Protein Albumin Globulin Albumin/Globulin Ratio 11/15/18 11/15/18 11/15/18 06:42 07:27 11:18 WBC RBC Hgb Hct MCV MCH MCHC RDW Plt Count MPV Neut % (Auto) Lymph % (Auto) Banner % (Auto) Eos % (Auto) Baso % (Auto) Neut # (Auto) Lymph # (Auto) Banner # (Auto) Eos # (Auto) Baso # (Auto) Sodium 139 Potassium 3.5 L Chloride 110 H Carbon Dioxide 25 Anion Gap 8 L BUN 4 L Creatinine 0.6 L Est GFR ( Amer) > 60 Est GFR (Non-Af Amer) > 60 POC Glucose (mg/dL) 147 H 98 Random Glucose 144 H Calcium 8.4 L Total Bilirubin 0.3 AST 26 ALT < 6 L D Alkaline Phosphatase 82 Total Protein 6.7 Albumin 3.0 L Globulin 3.7 Albumin/Globulin Ratio 0.8 L Assessment & Plan - Assessment and Plan (Free Text) Assessment: 53 year old female with history of esophageal cancer status post chemoradiation in 2017, with esophageal stent and multiple dilatation for esophageal stricture. EGD revealed obstruction of lower esophagus. Plan: Keep NPO for now. Swallow study IV fluids Medical management Will discuss repeat stent and dilation pending swallow study. Celia Helton, PGY1
[2018-11-16] MEDS: Dextrose 5%/0.9% NS 1,000 ML IV SCH (01:00)
[2018-11-16 07:38] VITALS: BP 107/72; PULSE 69; TEMP 97.9; O2SAT 99
[2018-11-16 07:46] LABS: BASO # 0.1 K/uL (0.0-0.2); BASO % 0.9 % (0.0-2.0); EOS # 0.2 K/uL (0.0-0.7); EOS % 2.9 % (0.0-4.0); HEMOGLOBIN 8.7 g/dL (11.0-16.0); LYMPH # 1.8 K/uL (1.0-4.3); MEAN CELL VOLUME 84.3 fL (81.0-99.0); MEAN CORPUSCULAR HEMOGLOBIN 27.9 pg (27.0-31.0); MEAN CORPUSCULAR HGB CONC 33.1 g/dL (33.0-37.0); MEAN PLATELET VOLUME 7.6 fL (7.2-11.7); MONO # 0.6 K/uL (0.0-0.8); MONO % 9.4 % (0.0-10.0); NEUT # 3.5 K/uL (1.8-7.0); NEUT % 57.8 % (50.0-75.0); NRBC % 0.1 % (0.0-2.0); RBC 3.11 Mil/uL (3.80-5.20); RED CELL DISTRIBUTION WIDTH 18.4 % (11.5-14.5); WHITE BLOOD COUNT 6.1 K/uL (4.8-10.8)
[2018-11-16 08:05] LABS: ALB/GLOB RATIO 0.8 (1.0-2.1); ALBUMIN 2.9 g/dL (3.5-5.0); ALT/SGPT 7 U/L (9-52); AST/SGOT 22 U/L (14-36); BLOOD UREA NITROGEN 2 mg/dL (7-17); CALCIUM 8.3 mg/dl (8.6-10.4); GFR NON-AFRICAN AMERICAN > 60
[2018-11-16] MEDS: Ferric Sodium Gluconat Complex 62.5 mg/5 ml Vial IVPB SCH (10:02)
--- NOTE | 2018-11-16 11:04 | CP.PCM.PN ---
Subjective - Date & Time of Evaluation Date of Evaluation: 11/16/18 Time of Evaluation: 06:30 - Subjective Subjective: Cardiothoracic Surgery Progress Note for Dr. Leiva This 53F was seen and examined this AM at bedside no acute events overnight. She is tolerating her secretions however she is currently unable to swallow liquid beverages. She denies any chest pain or SOB. Discussed plans for esophagogram with pt. Objective - Vital Signs/Intake and Output Vital Signs (last 24 hours): Temp Pulse Resp BP Pulse Ox 97.9 F 69 20 107/72 99 11/16/18 07:36 11/16/18 07:36 11/16/18 07:36 11/16/18 07:36 11/16/18 07:36 Intake and Output: 11/16/18 11/16/18 06:59 18:59 Intake Total 1630 Balance 1630 - Medications Medications: Current Medications Dextrose (Dextrose 50% Inj) 0 ml IV STAT PRN; Protocol PRN Reason: Hypoglycemia Protocol Last Admin: 11/12/18 21:58 Dose: 50 ml Dextrose (Glutose 15) 0 gm PO ONCE PRN; Protocol PRN Reason: Hypoglycemia Protocol Ferric Sodium Gluconate Complex (Ferrlecit) 125 mg IVPB DAILY [facility] Stop: 11/21/18 10:01 Last Admin: 11/16/18 10:02 Dose: 125 mg Glucagon (Glucagen Diagnostic Kit) 0 mg IM STAT PRN; Protocol PRN Reason: Hypoglycemia Protocol Metoclopramide HCl (Reglan) 5 mg IVP Q6 [facility] Last Admin: 11/16/18 06:00 Dose: 5 mg Ondansetron HCl (Zofran Inj) 4 mg IVP Q8 PRN PRN Reason: Nausea/Vomiting Pantoprazole Sodium (Protonix Inj) 40 mg IVP DAILY [facility] Last Admin: 11/16/18 10:02 Dose: 40 mg - Labs Labs: 11/16/18 07:26 11/16/18 07:26 PT 12.9 SECONDS (9.7-12.2) H 11/11/18 20:57 INR 1.2 11/11/18 20:57 APTT 21 SECONDS (21-34) 11/11/18 20:57 - Constitutional Appears: Non-toxic, No Acute Distress - Head Exam Head Exam: ATRAUMATIC, NORMOCEPHALIC - Eye Exam Eye Exam: EOMI, Normal appearance - ENT Exam ENT Exam: Mucous Membranes Moist - Respiratory Exam Respiratory Exam: NORMAL BREATHING PATTERN - Cardiovascular Exam Cardiovascular Exam: +S1, +S2 - GI/Abdominal Exam GI & Abdominal Exam: Soft. absent: Firm, Guarding, Rigid, Tenderness - Neurological Exam Neurological Exam: Alert, Awake - Psychiatric Exam Psychiatric exam: Normal Affect, Normal Mood - Skin Skin Exam: Dry, Intact Assessment and Plan - Assessment and Plan (Free Text) Assessment: 53F with esophageal stricture F/U Esophagogram Surgical plan to follow Further recs per Dr. Hector Bishop PGY3
--- NOTE | 2018-11-16 12:46 | CP.PCM.PCO ---
Physician Communication Note - Physician Communication Note Physician Communication Note: I was called to see the pt because she wanted to leave.
--- NOTE | 2018-11-17 15:30 | HP ---
HISTORY OF PRESENT ILLNESS: Arleen Pichardo is a 53-year-old female with a history of CA of the esophagus and stomach and now is complaining dysphagia. She has a history of multiple stents and recent chemotherapy. PHYSICAL EXAMINATION: GENERAL: The patient is awake, alert, and oriented to time and place. HEENT: Within normal limits. NECK: Supple. CHEST: Symmetrical. HEART: Regular. ABDOMEN: Soft. EXTREMITIES: No edema. IMPRESSION AND PLAN: The patient suffers from dysphagia. The patient is to get bedrest, supportive care. Sarai Srivastava MD
--- NOTE | 2018-11-17 20:01 | CP.PCM.PN ---
Subjective - Date & Time of Evaluation Date of Evaluation: 11/15/18 Time of Evaluation: 12:00 - Subjective Subjective: EGD findings noted. Objective - Vital Signs/Intake and Output Vital Signs (last 24 hours): Temp Pulse Resp BP Pulse Ox 97.9 F 69 20 107/72 99 11/16/18 07:36 11/16/18 07:36 11/16/18 07:36 11/16/18 07:36 11/16/18 07:36 - Labs Labs: 11/16/18 07:26 11/16/18 07:26 PT 12.9 SECONDS (9.7-12.2) H 11/11/18 20:57 INR 1.2 11/11/18 20:57 APTT 21 SECONDS (21-34) 11/11/18 20:57 - Head Exam Head Exam: ATRAUMATIC - Eye Exam Eye Exam: Normal appearance - ENT Exam ENT Exam: Mucous Membranes Dry - Respiratory Exam Respiratory Exam: NORMAL BREATHING PATTERN - Cardiovascular Exam Cardiovascular Exam: +S1, +S2 - GI/Abdominal Exam GI & Abdominal Exam: Normal Bowel Sounds Assessment and Plan (1) Esophageal cancer Assessment & Plan: EGD findings noted CT surgery evaluation in progress Status: Acute (2) Anemia Assessment & Plan: iron deficiency anemia on IV iron Status: Acute
== END 2018-11-16 13:15 | disposition left against medical advice (07) | DRG 172 ==
LOC: C.ER 17:53 → C.3T 21:29 → OBSVTOIN 11-13 11:50
PROVIDERS: ADMIT Internal Medicine Pulmonary Disease; ATTEND Internal Medicine Pulmonary Disease
PROC: 0DJ08ZZ Inspection of Upper Intestinal Tract, Via Natural or Artificial Opening Endoscopic (ICD-10-PCS; principal; 2018-11-15 13:20)
DX: C15.5 Malignant neoplasm of lower third of esophagus (principal); K22.2 Esophageal obstruction; E11.649 Type 2 diabetes mellitus with hypoglycemia without coma; D50.9 Iron deficiency anemia, unspecified; N19 Unspecified kidney failure; E78.5 Hyperlipidemia, unspecified; E78.00 Pure hypercholesterolemia, unspecified; Z85.028 Personal history of other malignant neoplasm of stomach; Z85.038 Personal history of other malignant neoplasm of large intestine; Z87.891 Personal history of nicotine dependence; Z92.21 Personal history of antineoplastic chemotherapy; Z92.3 Personal history of irradiation; Z83.3 Family history of diabetes mellitus; Z80.9 Family history of malignant neoplasm, unspecified